=== PATIENT | male | born 1960 | race Hispanic/Latino ===

== ENCOUNTER 2016-11-11 08:50 | Emergency (ER) | payer OTHER ==
[2016-11-11 09:08] VITALS: BMI 38.0
[2016-11-11 09:12] VITALS: TEMP 99.4
--- NOTE | 2016-11-11 09:35 | ED PDOC ---
Arrival/HPI - General Chief Complaint: Abdominal Pain Time Seen by Provider: 11/11/16 09:02 - History of Present Illness Narrative History of Present Illness (Text): 11/11/16 09:31 56 year old male presents to the emergency room with a complaint of left inguinal/testicular pain. The patient noticed pain yesterday in his left testicle a 2-3 days ago. The pain is intermittent and can range from dull to sharp. The patient recently had epididymitis of the right testicle, diagnosed on 09/26 according to the patient's . This was believed to be due to a complication of a rae cath, which was in place b/c of his BPH. The patient sees Dr. Pacheco for Urology. He was started on Cipro and Bactrim, which he finished approximately one month ago. The patient has been taking Tylenol only for pain, due to the fear that Advil/Naproxen will cause him to bleed. The Tylenol is not helping. The patient's (a nurse) states that she removed the patient's Rae due to it being obstructed and found a stone in the tip of the catheter. The patient has an appointment with Dr. Pacheco tomorrow. (YaquelinBrian) Past Medical History - Provider Review Nursing Documentation Reviewed: Yes - Infectious Disease Hx of Infectious Diseases: None - Cardiac Hx Cardiac Disorders: No - Pulmonary Hx Respiratory Disorders: No - Neurological Hx Neurological Disorder: No - HEENT Hx HEENT Disorder: No - Renal Hx Renal Disorder: No - Endocrine/Metabolic Hx Endocrine Disorders: No - Hematological/Oncological Hx Blood Disorders: No - Integumentary Hx Dermatological Disorder: No - Musculoskeletal/Rheumatological Hx Musculoskeletal Disorders: No - Gastrointestinal Hx Gastrointestinal Disorders: No - Genitourinary/Gynecological Hx Genitourinary Disorders: Yes - Psychiatric Hx Psychophysiologic Disorder: No Hx Substance Use: No - Anesthesia Hx Anesthesia: No Family/Social History - Physician Review Nursing Documentation Reviewed: Yes Family/Social History: Unknown Family HX Smoking Status: Never Smoked Hx Alcohol Use: No Hx Substance Use: No Allergies/Home Meds Allergies/Adverse Reactions: Allergies No Known Allergies Allergy (Verified 11/11/16 09:08) Home Medications: Home Meds Medication Instructions Recorded Confirmed Tamsulosin [Flomax] 0.4 mg PO BID 11/11/16 11/11/16 Review of Systems - Physician Review All systems were reviewed & negative as marked: Yes - Review of Systems Constitutional: Normal. absent: Weight Change, Fevers Eyes: Normal. absent: Vision Changes, Photophobia ENT: Normal. absent: Sore Throat, Rhinorrhea Respiratory: Normal. absent: SOB, Cough Cardiovascular: Normal. absent: Chest Pain, Palpitations, Edema, Calf Pain Gastrointestinal: Normal. absent: Abdominal Pain, Constipation, Diarrhea, Nausea, Vomiting Genitourinary Male: Other (Multiple rae placement due to hx of BPH. Intermittent Left inguinal pain). absent: Hematuria Musculoskeletal: Normal. absent: Back Pain, Neck Pain Skin: Normal. absent: Rash Neurological: Normal. absent: Headache, Dizziness Endocrine: Normal. absent: Diaphoresis Psychiatric: Normal Physical Exam Vital Signs Reviewed: Yes Temperature: Afebrile Blood Pressure: Hypertensive Pulse: Tachycardic Respiratory Rate: Normal Appearance: Positive for: Well-Appearing, Non-Toxic, Comfortable Pain Distress: None Mental Status: Positive for: Alert and Oriented X 3 - Systems Exam Head: Present: Atraumatic, Normocephalic Extroacular Muscles: Present: EOMI Conjunctiva: Present: Normal Mouth: Present: Moist Mucous Membranes Nose (External): Present: Atraumatic. No: Abrasion Neck: Present: Normal Range of Motion. No: JVD Respiratory/Chest: Present: Clear to Auscultation. No: Respiratory Distress, Accessory Muscle Use, Wheezes, Rhonchi Cardiovascular: Present: Normal S1, S2, Peripheal Pulses Present, Tachycardic Abdomen: Present: Normal Bowel Sounds. No: Tenderness, Distention, Peritoneal Signs Genitourinary Male: Present: Testicle Tenderness (Extremely tender to palpation on left. Most tender to palpation in the superior, posterior pole of the left testicle. ), Testicle Swelling (left testicle > right testicle). No: Penile Discharge Back: No: CVA Tenderness, Paraspinal Tenderness Lower Extremity: Present: Normal Inspection, NORMAL PULSES, Capillary Refill < 2 s. No: Edema, CALF TENDERNESS, Swelling Neurological: Present: GCS=15 Skin: Present: Warm, Dry, Normal Color Lymphatic: No: Inguinal Adenopathy Psychiatric: Present: Alert, Oriented x 3, Normal Insight, Normal Concentration Medical Decision Making ED Course and Treatment: 11/11/16 09:46 Left testicular pain - left sided epididymitis - US - Mildly heterogeneous echotexture of the right testicle. Bilateral epididymal cyst. Small left hydrocele. - Due to hx of R sided epididymitis and physical exam, patient given script for Bactrim DS BID x 14 days. Dispo: Home. Prescription for Bactrim DS BID x 14 days. Patient has appointment scheduled with Dr. Pacheco (Urology) tomorrow. (Brian Jamison) 11/11/16 10:14 Patient Seen With Resident: In agreement with resident note and more details are present in their notes. Patient was seen and evaluated with resident, came up with plan and treatment together. 56 year old M p/w L testicular pain similar to previous epididymitis pain on R. On exam, L posterior/superior testicle tender. (Neville Morton) - RAD Interpretation Radiology Orders: 11/11/16 09:28 TESTES DUPLEX COMPLETE [US] Stat Disposition/Present on Arrival - Present on Arrival Any Indicators Present on Arrival: No History of DVT/PE: No History of Uncontrolled Diabetes: No Urinary Catheter: No History of Decub. Ulcer: No History Surgical Site Infection Following: None - Disposition Have Diagnosis and Disposition been Completed?: Yes Disposition Time: 11:55 Patient Plan: Discharge - Disposition Diagnosis: Testicular pain, left Disposition: HOME/ ROUTINE Condition: GOOD Discharge Instructions (ExitCare): Testicle Pain (ED) Prescriptions: Sulfamethoxazole/Trimethoprim [Bactrim DS 800 mg-160 mg] 1 tab PO BID #28 tab Referrals: Alvaro Briseno MD [Primary Care Provider] - Follow up with primary Georges Pacheco MD [Staff Provider] - Follow up with primary Forms: [employer] (Vietnamese)
--- NOTE | 2016-11-11 11:41 | US ---
HISTORY: left testicular pain, hx of epididymitis TECHNIQUE: Realtime sonography through the scrotum with color and doppler flow. COMPARISON: Testicular ultrasound performed 10/12/16 FINDINGS: RIGHT TESTICLE: Measures 3.8 x 2.4 x 2.4 cm. Mildly heterogeneous echotexture. Blood flow is demonstrated. RIGHT EPIDIDYMIS: Measures approximately 1.2 x 1.3 x 1.8 cm. 0.5 x 0.4 x 0.4 cm epididymal cyst. LEFT TESTICLE: Measures 3.7 x 2.4 x 2.7 cm. Homogeneous echotexture. Blood flow is demonstrated. LEFT EPIDIDYMIS: Measures approximately 1.3 x 1.0 x 1.2 cm. 0.7 x 0.5 x 0.6 cm epididymal cyst. HYDROCELE: Small left hydrocele. VARICOCELE: None. OTHER FINDINGS: None. IMPRESSION: Mildly heterogeneous echotexture of the right testicle. Bilateral epididymal cysts. Small left hydrocele.
[2016-11-11 12:14] VITALS: BP 142/85; PULSE 199; RESP 17; O2SAT 99
== END 2016-11-11 11:55 | disposition home or self-care (01) ==
LOC: ED 08:50
DX: N50.812 Left testicular pain (principal)

== ENCOUNTER 2017-10-17 06:05 | Day surgery (SDC) | payer OTHER ==
[2017-10-14 13:47] VITALS: BMI 36.3
[2017-10-17] MEDS ORDERED: Iodixanol 320 mg/ml 50 ml Sol IV ONE (07:28)
[2017-10-17] MEDS ORDERED: Propofol 10 mg/ml Inj (20 ML) ONE (07:52)
[2017-10-17] MEDS ORDERED: Midazolam 2 MG/2 ML VIAL ONE (07:53)
[2017-10-17] MEDS ORDERED: Piperacill/Tazo 4.5gm in NS 4.5 GM/100 ML BAG IVPB STA (08:06)
[2017-10-17] MEDS ORDERED: Gentamicin 80 mg/2mL Inj. ONE (08:17)
[2017-10-17] MEDS ORDERED: HYDROmorphone 0.5 mg/0.5 ml ISec IVP PRN (08:41)
[2017-10-17] MEDS ORDERED: Lactated Ringer's 1,000 ML IV SCH (08:45)
[2017-10-17 09:54] VITALS: PULSE 65; RESP 20; O2SAT 98
[2017-10-17 12:04] VITALS: BP 137/85; TEMP 98.1
--- NOTE | 2017-11-06 08:43 | PN ---
Copied To: Frederick Goodwin MD Attending MD: Frederick Goodwin MD DATE: 10/17/2017 IMMEDIATE POSTOP NOTE SUBJECTIVE: See the operative note. See the history and physical. Postop, the patient is in the recovery room. We did a biopsy. The patient has bladder stones. Really, the stones are connected to the bladder neck. See the body of the operative report. The patient's vital signs remain stable. Cain catheter is in place. There is some blood-tinged urine noted. In fact, see the addendum below, but basically we are going to leave the Cain catheter and the patient will be discharged home with an indwelling Cain catheter. Further plans will follow. Go home and have the catheter removed. The patient will be discharged home with an indwelling Cain catheter. Then, further plans will follow. Frederick Goodwin MD
--- NOTE | 2017-11-06 17:55 | HP ---
Copied To: Frederick Goodwin MD Attending MD: Frederick Goodwin MD UROLOGY ADMISSION HISTORY AND PHYSICAL REASON FOR ADMISSION: For workup and treatment of bladder stones and recurrent urinary tract infections. HISTORY OF PRESENT ILLNESS: The history is as follows. Mr. Case is a very pleasant gentleman who has a lot of voiding dysfunction, dysuria. I am actually concerned for malignancy with underlying long-term plan. He has dysuria, urgency, a lot of voiding complaints. Apparently, did not have any bladder lesion (so my concern will be more for carcinoma in situ, CIS sort of lesion). However, against this, the patient has stones in his bladder and he has recurrent positive urine culture. So he has been brought in today for a cystoscopy, removal of the bladder stones. He has been on antibiotics. He has multi resistant bacteria. Specifically, with a Pseudomonas that is resistant to many, many organism. See the chart after those details and we are treating with the antibiotics accordingly. Previously, we gave him oral antibiotics that were sensitive. It is not out consideration. We have discussed with the patient consideration to see Infectious Disease. The past medical and surgical is as listed. No history of an OR, CVA. SOCIAL HISTORY: He lives with his . . REVIEW OF SYSTEMS: As listed above. Noncontributory. No weight loss, chest pain, shortness of breath. No constitutional complaints. MEDICATIONS: See the chart. ALLERGIES: REVIEWED. PHYSICAL EXAMINATION: GENERAL: A well-developed, well-nourished male, no apparent distress. VITAL SIGNS: Within normal limits. See the chart. LUNGS: Clear. HEART: Normal S1 and S2. ABDOMEN: Soft, nontender. GENITOURINARY: Normal phallus. No testicular masses. RECTAL: A 30 g prostate, soft and smooth. LABORATORY DATA: See the chart. Urine culture is noted. DIAGNOSES: 1. Dysuria. 2. Frequency. 3. Urgency. 4. Recurrent positive urine cultures. 5. Bladder stone. We discussed the options with the patient, risks, benefits, treatment alternatives. The plan will be as follows. We are going to plan for cysto for better evaluation with anesthesia and then, clear the bladder stones and see if we can make progress. Further plans will follow. Frederick Goodwin MD [facility] # [id number]
--- NOTE | 2017-11-06 19:08 | OP ---
Copied To: Frederick Goodwin MD Attending MD: Frederick Goodwin MD PROCEDURE DATE: 10/17/2017 UROLOGY OPERATIVE REPORT I mentioned before I dictated the entire report, this is a repeat of the dictation. As I am reviewing my notes, I remember well dictating this that very same day. PREOPERATIVE DIAGNOSES: Dysuria, frequency, bladder stones, hematuria, recurrent urinary tract infections interact with a very resistant bacteria. POSTOPERATIVE DIAGNOSES: Dysuria, frequency, bladder stones, hematuria, recurrent urinary tract infections interact with a very resistant bacteria. The bladder stones seem more to be connected to a lesion rather than free floating stones (that is the lesion is of chronic nature). See the below addendum. See my addendum and recommendations. The specimens then found are debris, stones, and a bladder biopsy, see the report and the pathology is pending. SURGEON: Frederick Goodwin MD ESTIMATED BLOOD LOSS: Less than 10 mL. There is a Cain catheter left for straight drainage with a blood tinged urine. COMPLICATIONS: There were no complications. INDICATIONS: See history and physical for further details. Very pleasant gentleman who has longstanding, over quite sometime here, dysuria and recurrent infections. Concerns from my part will be for malignancy and that is why I am bringing the patient to the OR for the above-listed testing. I do have to say, he does have positive cultures. symptoms and what look like bladder stones, it turns out to be stones attached to a lesion. We did not remove the entire spot. We just did biopsy samples, more need to be done, see the addendum at the end of this note. PROCEDURE ITSELF: After obtaining informed consent, the patient was placed on the table, routine monitors placed, time-out was called to confirm patient's positioning. Cystoscope was introduced via the urethra. We now inspected the urine and is visually occlusive. Within normal limits for a 57-year-old, about 2 to 3 cm it is visually occlusive. Now the bladder was inspected carefully and along the floor of the side of the bladders, there is a small calcification, see the multiple pictures that were taken, the chart. The lesions were noted. We then removed that debris stone material, it was stone not free floating, but it was attached and on the wall. We did a biopsy and fulgurated, see the pictures. At this point, we inserted the Cain catheter via the urethra without difficulty. I just want to mention in the rectal exam, 20 to 30 g prostate was all smooth. Patient tolerated the procedure well without complication. ADDENDUM: We are going to see how the patient does, most likely wanted to be discharged home with a Cain catheter. It is not well discussed on admission to the hospital, we will have to see how much blood is present. I do want to also mention that the patient has positive recurrent urinary tract infection and positive urine cultures. I am concerned with his dysuria and this is persistent and nonstop. The concern for malignancy, I need to be addressed. After today's procedure, we have not removed the entire lesion. Therefore, I am going to recommend repeat resection once we get the final pathology and we know whether we are dealing with a transitional cell or not. Frederick Goodwin MD
== END 2017-10-17 12:03 | disposition home or self-care (01) ==
LOC: SDS 06:05
PROVIDERS: ATTEND Urology
DX: N21.0 Calculus in bladder (principal); N30.20 Other chronic cystitis without hematuria; N39.0 Urinary tract infection, site not specified
CPT/HCPCS: 52204; 88305; J0295; J1170; J1580; J2001; J2250; J2704; J3010; J7120 ×2; Q9967

== ENCOUNTER 2018-03-13 09:59 | Outpatient (CLI) | payer OTHER | END 2018-03-13 10:00 | disposition home or self-care (01) | LOC: LAB 09:59 ==

== ENCOUNTER 2018-03-14 07:47 | Outpatient (CLI) | payer OTHER | END 2018-03-14 07:48 | disposition home or self-care (01) | LOC: RAD 07:47 ==

== ENCOUNTER 2018-03-27 06:02 | Day surgery (SDC) | payer OTHER ==
[2018-03-24 13:42] VITALS: BMI 37.8
[2018-03-27] MEDS ORDERED: Midazolam 2 MG/2 ML VIAL ONE (07:40)
[2018-03-27] MEDS ORDERED: Propofol 10 mg/ml Inj (20 ML) ONE (07:40)
[2018-03-27] MEDS ORDERED: Lidocaine 1% Inj (20ml) ONE (07:41)
[2018-03-27] MEDS ORDERED: cefTRIAXone 1 GM in NS 100 ML BAG IVPB ONE (08:00)
[2018-03-27] MEDS ORDERED: cefTRIAXone (Rocephin) 1 gm Inj ONE (08:02)
[2018-03-27] MEDS ORDERED: Iohexol 240 (50 ml) ONE (08:02)
[2018-03-27] MEDS ORDERED: Succinylcholine 200 mg/10 ml Inj IV ONE (08:21)
[2018-03-27] MEDS ORDERED: HYDROmorphone 0.5 mg/0.5 ml ISec IVP PRN (09:07)
[2018-03-27] MEDS ORDERED: Lactated Ringer's 1,000 ML IV SCH (09:15)
--- NOTE | 2018-03-27 09:32 | CARD ---
APPROVED REPORT Date of service: 03/27/2018 EKG Measurement Heart [id number] <Conclusion> Sinus bradycardia Otherwise normal ECG
[2018-03-27] MEDS ORDERED: Oxycodone/Acetaminophen 5/325 mg Tab PO PRN (09:35)
[2018-03-27] MEDS ORDERED: Ciprofloxacin 400mg/200ml D5W 400 MG/200 ML BAG IVPB STA (09:35)
[2018-03-27] MEDS ORDERED: HYDROmorphone 0.5 mg/0.5 ml ISec ONE ×3 (09:48→10:42)
[2018-03-27] MEDS ORDERED: HYDROmorphone 0.5 mg/0.5 ml ISec IVP ONE ×3 (09:50→10:35)
[2018-03-27] MEDS ORDERED: Oxycodone/Acetaminophen 5/325 mg Tab PO ONE (11:10)
[2018-03-27] MEDS ORDERED: Oxycodone/Acetaminophen 5/325 mg Tab ONE (11:12)
[2018-03-27 11:13] VITALS: RESP 18; TEMP 97.7
[2018-03-27 11:45] VITALS: BP 109/63; PULSE 63; O2SAT 94
--- NOTE | 2018-03-27 12:19 | PN ---
DATE: 03/27/2018 This is an immediate postop note. See the preoperative and the postoperative notes. See history and physical. The patient is now status post a TURP and a breakup of a stone. At the termination of the procedure, the patient is reasonably opened. He is not bleeding. He has a Cain catheter in place. See the operative note for further details. PHYSICAL EXAMINATION: VITAL SIGNS: Within normal limits. He is in recovery room in stable condition. This is an immediate postop note. PLAN: As follows, Cain to straight drainage and most likely we would like to discharge him home with the Cain (preferably I would actually keep the patient in the hospital for monitoring). 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 We will discuss this further. This is the immediate postop note. Frederick Goodwin MD
[2018-03-27] MEDS ORDERED: Ciprofloxacin 400mg/200ml D5W 400 MG/200 ML BAG IVPB ONE (12:28)
--- NOTE | 2018-03-30 09:13 | OP ---
PROCEDURE DATE: 03/27/2018 UROLOGY OPERATIVE NOTE PREOPERATIVE DIAGNOSES: Recurrent urinary tract infection, hematuria, voiding dysfunction, decreased force of stream, irritative and obstructive complaints, "bladder neck mass" and a stone on the mass. POSTOPERATIVE DIAGNOSES: Recurrent urinary tract infection, hematuria, voiding dysfunction, decreased force of stream, irritative and obstructive complaints, "bladder neck mass" and a stone on the mass. The stone is actually attached but free floating. The bladder neck mass is really actually just an extension of the prostate. PROCEDURE: Transurethral resection of the prostate and of the bladder neck and a breakup of the stone. BLOOD LOSS: Less than 25 mL. SPECIMENS SENT: Prostate tissue and the bladder stone. COMPLICATIONS: There were no complications. At the termination of the procedure, the patient has an indwelling Cain catheter with about 50 mL in the balloon into 30 mL balloon 50 mL, put on mild amount of traction, not to gravity. The urine is relatively clear. Connected to the drain. INDICATIONS FOR PROCEDURE: Please see the history and physical for details. This is a very pleasant 57-year-old young gentleman with a lot of irritative and obstructive complaints of recurrent infection, positive urine culture, bladder stone. He also saw Infectious Disease and also Dr. Alvaro Briseno. After seeing him, the concern is recurrent infections and the bladder stone and the possibility of prostatic abscess. We discussed the options, risks, benefits, and alternatives. He is here today for the above-stated procedure. We are going to get rid of the stone which we did and we are also going to open up the prostate tissue. The risks and benefits are discussed at length particularly retrograde ejaculation and the risk that the tissue will recur. This is mostly just to see if we can clear the infection and make him have a better flow with urination. . UROLOGY OPERATIVE FINDINGS: 1. Normal meatus. 2. Normal anterior urethra. No stricture. The veru is visually occlusive. There is fairly occlusive prostate. 3. At the termination of the procedure, the urethra to be opened and the veru is grossly intact. 4. There is a stone that is actually sitting on the bladder neck but once we pushed and probed a little bit, we were able to free it and then get the free independent stone. We sent that as a specimen. down the bladder neck and prostate altogether. I do mention that I never saw the ureteral orifices even at the beginning or the termination of the procedure, but we never beyond the bladder neck. in the prostatic urethra, which is an unusual variant but definitely we never resected beyond the bladder neck. Other than the area of the patient's right side, which is a direct extension of the bladder neck, but anywhere near the trigone. I do want to mention the other findings. There is a lot of irritation and lot of blood, but we were able to control it completely. We had good visualization and good control throughout the entire procedure. See the operative note below. DESCRIPTION OF PROCEDURE: After obtaining informed consent, the patient was placed on the table. Routine monitor was placed. Time-out was called to confirm the patient and positioning. The cause of his recurrent infection was Pseudomonas. We gave a lot of antibiotics today. We gave gentamicin 240 mg and we gave Rocephin 1 g plus Cipro postoperatively. Previously, the patient had Merrem. He had been seen by multiple consultants. Most recently, I received a message from Dr. Briseno regarding a positive urine culture as well. So we gave him a tremendous amount of antibiotics now and then sent him home with antibiotics depending on either today or tomorrow. The procedure itself continues as follows. The patient's time-out was called to confirm the patient, positioning and antibiotic prophylaxis. The patient had been placed in the lithotomy position after Venodyne boots in the lower extremities making sure that we had increased circulation. The entire procedure was done with a camera, so I could have my assistants help me. We began with resectoscope without difficulty. Normal anterior urethra. No stricture. The verumontanum is visually occlusive. Fairly big prostate for a 57-year-old gentleman. We now identified our landmarks. We identified veru. We identified the bladder neck. I could never see the orifices despite I tried. At the bladder neck, there was a stone sitting on a piece of the tissue that was elevated. When I probed it harder, I could free it up and then and then I could break it up and take it out. It was actually a very fragile stone. We then continued. We identified our tissue. We began resecting at the bladder neck. I want to mention that before even doing the first cut, there was a lot of bleeding noted at the bladder neck. erythematous prostate. We are able to get good control of it. We started at the bladder neck at the 7 o' clock position. We then worked on the way towards the 5 o'clock. We worked between 7 and 5. We then worked distally. We could stay along the floor a little bit. We then went up to 7 to 11 and 5 to 1. Side to side and again step by step working on the way towards the veru slow steady steps. We opened up the prostate tissue. When we do, I do not see any purulent material drainage. There were no signs of a prostatic abscess per se. We kept identifying our landmarks. Even after most inspection, I still never ended seeing the orifice. We had good control of bleeding. Once we worked away all the way to the veru on both sides, the patient's left and right sides. We had good control of hemostasis. We now turned our attention between 11 and 1. We went back to where the area of the bladder neck is. I went a little distal to this and I just picked from 11 to 1 just equivalent to breaking the anterior commissure. Just a little bit opening. We reinspected. We irrigated out all the stones and all the pieces and we kept them separate. At this point, I placed a Cain catheter via the urethra. We put it on mild traction. It drained well. We placed it easily. No problems. It drained well, essentially almost clear urine. The patient is with mild traction. The patient tolerated without complication. The plan will be as follows: I would like to admit the patient but will see with the who is an RN will prefer to do what the patient prefers to do. It is early in the morning and we will see how it goes. Frederick Goodwin MD
--- NOTE | 2018-03-30 09:15 | HP ---
DATE OF EXAM: 03/27/2017 UROLOGY ADMISSION HISTORY AND PHYSICAL REASON FOR ADMISSION: Treatment of recurrent infection. HISTORY OF PRESENT ILLNESS: He is a young gentleman, he is only 57 years old. He has recurrent urinary tract infections with positive urine cultures. He happens to have a bladder stone. We thought this was associated with a bladder mass, see below. He has had recurrent infections. He has also seen Infectious Diseases, and he thinks maybe this is micro-prostate abscess. Today, he is here for both resecting the stone that is on the bladder mass. It is right at the bladder neck, and also for resecting the prostate tissue, we are going to do actually a TURP. See below. Plans, recommendations, risks, benefits, treatment alternatives, etc., were all discussed. The past medical and surgical history as listed on the chart. No other changes. A patient of Dr. Briseno. I just want to mention from a Urology standpoint, in the past he has seen Dr. Pacheco. This has been going on for a very long time and we are hoping to make some definitive improvements today. The past medical and surgical history is otherwise unremarkable from a Urology standpoint. REVIEW OF SYSTEMS: As listed above, but otherwise noncontributory. No weight loss, chest pain, shortness of breath, or PND. SOCIAL HISTORY: He works. He is . works. 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 It has just been a very rough difficult time for him with all the recurrent infections, bleeding and just discomfort and not voiding well. See below about to explain his irritative complaints. PHYSICAL EXAMINATION GENERAL: A well-nourished male, in no apparent distress. VITAL SIGNS: Within normal limits. CHEST: Lungs are clear. HEART: S1, S2. ABDOMEN: Overall soft, nontender. No flank mass appreciated. GENITOURINARY: Normal male phallus without discharge. No testicular masses appreciated. RECTAL: 30 g prostate. No specific abscess was detected. It is not hard. LABORATORY DATA: See chart. PSA noted. noted. DIAGNOSES: 1. Recurrent urinary tract infections with positive urine culture. 2. Bladder mass stone (see bellow addendum note and see the operative note). We had discussed antibiotics. We discussed further plans. We discussed . We discussed various options. Today, I am going to plan to resect anything that is causing obstruction to the tissue and get rid of the stone within the urinary bladder. See the addendum below. We discussed the risks and benefits and we discussed specifically that sometimes it still may not work that he is able to void better, he still may develop infections, but we are hoping that it would not be the case. We are going to get rid of any stone debris and we are going to get rid of any obstructing tissue. We also discussed the possibility for a retrograde ejaculation picture. We discussed not really directly affecting the firmness of erection, but the ejaculation issues. I did discuss with him various options including observation, including other possibility, including second opinion, but I think we are going to make it. I also discussed the benefits of the procedure. PLAN: So, we are going to plan for the following; 1. Antibiotic prophylaxis. 2. Cystoscopy. 3. Resecting the tissue. see the operative note, it is a separately dictated note, but I do want to mention that the findings whether the stone that we thought was attached to a mass is actually just prostate tissue at the bladder neck. It is resected completely, but we broke the stone separately and sent down a separate stone material and then sent the bladder as a part of the prostate tissue. (I do want to mention that first we are going to wait for the pathology, but I am fairly at this point as before. It is not a malignancy, it is just the extension of the prostate.) Frederick Goodwin MD
== END 2018-03-27 15:07 | disposition home or self-care (01) ==
LOC: SDS 06:02
PROVIDERS: ATTEND Urology
DX: N30.81 Other cystitis with hematuria (principal); N21.0 Calculus in bladder; N39.0 Urinary tract infection, site not specified; B96.5 Pseudomonas (aeruginosa) (mallei) (pseudomallei) as the cause of diseases classified elsewhere
CPT/HCPCS: 52317; 52500; 52601; 88300; 88307; 93005; J0330; J0696; J0744; J1170; J2250; J2405; J2704; J2765; J3010; J7120

== ENCOUNTER 2018-05-12 09:26 | Outpatient (CLI) | payer OTHER | END 2018-05-12 09:27 | disposition home or self-care (01) | LOC: RAD 09:26 ==

== ENCOUNTER 2018-06-08 17:40 | Outpatient (CLI) | payer OTHER | END 2018-06-08 17:41 | disposition home or self-care (01) | LOC: RAD 17:41 ==